=== PATIENT | female | born 1955 | race Caucasian/White ===

== ENCOUNTER 2021-10-30 08:03 | Day surgery (SDC) | payer BC ==
[2021-10-29 11:20] VITALS: BMI 18.8
[2021-10-30] MEDS: LACTATED RINGERS 1,000 ML IV SCH ×2 (08:54→09:21)
[2021-10-30 08:59] VITALS: RESP 16; TEMP 80
[2021-10-30] MEDS ORDERED: LIDOCAINE 2% INJ 20 MG/ML (2 ML VIAL) ONE (09:22)
[2021-10-30] MEDS ORDERED: PROPOFOL 10 MG/ML 20 ML VIAL IV ONE (09:22)
--- NOTE | 2021-10-30 09:40 | P.PCN ---
Date of Procedure: 10/30/21 Procedure(s) Performed: BRIEF HISTORY: Patient is a 65-year-old pleasant white female scheduled for an elective colonoscopy as a part of evaluation of change in bowel habits, intermittent rectal bleeding with mucus in the stools for the last 1 month duration. PROCEDURE PERFORMED: Colonoscopywith biopsy and snare polypectomy PREOPERATIVE DIAGNOSIS: Intermittent rectal bleeding, change in bowel habits]. IV sedation per Anesthesia. PROCEDURE: After informed consent was obtained, the patient, was brought into the endoscopy unit. IV sedation was administered by Anesthesia under continuous monitoring. Digital rectal examination was normal. Initially the Olympus CF-160 flexible video colonoscope was then inserted in the rectum, gradually advanced into the cecum without any difficulty. Careful examination was performed as the scope was gradually being withdrawn. Ileocecal valve and the appendiceal orifice were visualized and appeared normal. Prep was fair. Mucosa of the cecum, ascending colon, transverse colon, descending colon, sigmoid colon, and rectum appeared normal.in the distal rectum there was a 7 mm polyp removed by snare polypectomy. Random biopsies were done from the ascending and descending colon to rule out microscopic/collagenous colitis.Retroflexion was performed in the rectum and no lesions were seen. The patient tolerated the procedure well. IMPRESSION: 7-8 mm proximal rectal polyp status post polypectomy Rest of the colon appeared normal RECOMMENDATIONS: Findings of this examination were discussed with the patient as well as a family. She was advised to follow with the biopsy results..If the biopsy report adenoma she can have a repeat colonoscopy in 5 years.
[2021-10-30 09:46] VITALS: BP 134/75; PULSE 68
== END 2021-10-30 10:42 | disposition home or self-care (01) ==
LOC: ORWHC2ENDO 08:03
PROVIDERS: ATTEND Internal Medicine Gastroenterology
DX: D12.8 Benign neoplasm of rectum (principal); I10 Essential (primary) hypertension; J44.9 Chronic obstructive pulmonary disease, unspecified; E07.9 Disorder of thyroid, unspecified; Z88.2 Allergy status to sulfonamides; Z79.51 Long term (current) use of inhaled steroids; Z79.890 Hormone replacement therapy; Z79.899 Other long term (current) drug therapy
CPT/HCPCS: 88305; 45380; 45385; J2704; J2001

== ENCOUNTER 2024-07-19 13:11 | Emergency (ER) | payer BC ==
--- NOTE | 2024-07-19 14:35 | ED ---
SOB HPI - General Chief Complaint: Shortness of Breath Stated Complaint: SOB Time Seen by Provider: 07/19/24 14:35 Source: patient, family, RN notes reviewed Limitations: no limitations - History of Present Illness Initial Comments: 68-year-old female with a past medical history significant of COPD, hypertension and thyroid disorder presenting to the ER for evaluation of difficulty in breathing. Patient states since Thursday she has felt unwell with a throbbing headache, cough, congestion and runny nose. Patient reports she feels like her head is going to "explode". Patient has tried prescribed breathing treatments without relief of symptoms. Patient admits granddaughter has also been ill with a "head cold". Patient admits to mild shortness of breath. She denies any or thopnea, exertional dyspnea or peripheral edema. Denies home O2 use. Denies any chest pain, fevers, chills, abdominal pain. She does admit to recent diarrhea. No urinary complaints. - Related Data Home Medications Medication Instructions Recorded Confirmed Benazepril HCl 10 mg PO DAILY 10/29/21 07/19/24 Levothyroxine Sodium [Synthroid] 75 mcg PO DAILY 10/29/21 07/19/24 Tiotropium [place] [Spiriva] 1 puff INHALATION RT-DAILY 10/29/21 07/19/24 dilTIAZem HCL [dilTIAZem HCL 24Hr 120 mg PO DAILY 10/29/21 07/19/24 ER (Xr)] ALPRAZolam [Xanax] 0.25 mg PO BID PRN 07/19/24 07/19/24 Albuterol Sulfate [Albuterol 2 puff INHALATION RT-Q6H PRN 07/19/24 07/19/24 Sulfate Hfa] Atorvastatin [Lipitor] 20 mg PO DAILY 07/19/24 07/19/24 Citalopram Hydrobromide 20 mg PO DAILY 07/19/24 07/19/24 [Citalopram HBr] Fluticasone/Umeclidin/Vilanter 1 puff INHALATION RT-DAILY 07/19/24 07/19/24 [Trelegy Ellipta 100-62.5-25] Ipratropium-Albuterol Nebulize 3 ml INHALATION RT-TID PRN 07/19/24 07/19/24 [Duoneb 0.5 mg-3 mg/3 ml Soln] Omeprazole [PriLOSEC] 20 mg PO DAILY 07/19/24 07/19/24 Allergies Allergy/AdvReac Type Severity Reaction Status Date / Time Sulfa (Sulfonamide Allergy Anaphylaxis Verified 07/19/24 13:16 Antibiotics) Review of Systems ROS Statement: Those systems with pertinent positive or pertinent negative responses have been documented in the HPI. ROS Other: All systems not noted in ROS Statement are negative. Past Medical History Past Medical History: COPD, Hypertension, Thyroid Disorder Additional Past Medical History / Comment(s): LOW SODIUM History of Any Multi-Drug Resistant Organisms: None Reported Past Surgical History: Appendectomy, Back Surgery, Cholecystectomy, Orthopedic Surgery Additional Past Surgical History / Comment(s): RIGHT SHOULDER SURGERY Past Anesthesia/Blood Transfusion Reactions: No Reported Reaction Past Psychological History: Anxiety Smoking Status: Former smoker Past Alcohol Use History: Occasional Past Drug Use History: None Reported General Exam Limitations: no limitations General appearance: alert, in no apparent distress Head exam: Present: atraumatic, normocephalic, normal inspection Eye exam: Present: normal appearance, PERRL, EOMI. Absent: scleral icterus, conjunctival injection, periorbital swelling Pupils: Present: normal accommodation ENT exam: Present: normal exam, normal oropharynx, mucous membranes moist Neck exam: Present: normal inspection. Absent: tenderness, meningismus, lymphad enopathy Respiratory exam: Present: normal lung sounds bilaterally. Absent: respiratory distress, wheezes, rales, rhonchi, stridor Cardiovascular Exam: Present: regular rate, normal rhythm, normal heart sounds. Absent: systolic murmur, diastolic murmur, rubs, gallop, clicks GI/Abdominal exam: Present: soft, normal bowel sounds. Absent: distended, tenderness, guarding, rebound, rigid Extremities exam: Present: normal inspection, full ROM, normal capillary refill. Absent: tenderness, pedal edema, joint swelling, calf tenderness Neurological exam: Present: alert, oriented X3, CN II-XII intact Skin exam: Present: warm, dry, intact, normal color. Absent: rash Course Vital Signs 07/19/24 07/19/24 07/19/24 13:14 15:07 15:15 Temperature 97.9 F Pulse Rate 115 H 100 98 Respiratory 18 20 18 Rate Blood Pressure 156/105 150/93 O2 Sat by Pulse 97 96 Oximetry 04/29/25 04/29/25 04/29/25 15:25 17:18 18:57 Temperature 99.2 F 98.2 F Pulse Rate 95 94 74 Respiratory 18 18 18 Rate Blood Pressure 146/75 152/77 O2 Sat by Pulse 95 99 Oximetry - Reevaluation(s) Reevaluation #1: 07/19/24 17:24 Patient reevaluated. No signs of acute distress.Patient continued complaining of headache for which headache cocktail was ordered. CT brain also ordered. 07/19/24 18:45 Patient reevaluated. No signs of acute distress. Patient updated on CT results. Patient reporting improvement of headache. Patient agreeable for discharge and will follow-up outpatient with PCP. Medical Decision Making - Medical Decision Making Was pt. sent in by a medical professional or institution (, PA, PER DIEM PHYSICAL THERAPIST ASSISTANT, urgent care, hospital, or correction...) When possible be specific @ -No Did you speak to anyone other than the patient for history (EMS, parent, family, police, friend...)? What history was obtained from this source @ -No Did you review nursing and triage notes (agree or disagree)? Why? @ -I reviewed and agree with nursing and triage notes Were old charts reviewed (outside hosp., previous admission, EMS record, old EKG, old radiological studies, urgent care reports/EKG's, correction records)? Report findings @ -No old charts were reviewed Differential Diagnosis (chest pain, altered mental status, abdominal pain women, abdominal pain men, vaginal bleeding, weakness, fever, dyspnea, syncope, headache, dizziness, GI bleed, back pain, seizure, CVA, palpatations, mental health, musculoskeletal)? @ -Differential Weakness:Hypoglycemia, shock, sepsis, hyponatremia, anemia, infection, ND, ETOH, adverse medicine reaction, overdose, stroke, this is not meant to be an all-inclusive list. EKG interpreted by me (3pts min.). @ -As above X-rays interpreted by me (1pt min.). @ -CXR interpreted by me negative for focal consolidations, pneumothorax or pleural effusions. COPD. CT interpreted by me (1pt min.). @ -CT brain negative for acute intracranial process. Nonspecific white matter changes likely secondary to chronic small vessel ischemic disease U/S interpreted by me (1pt. min.). @ -None done What testing was considered but not performed or refused? (CT, X-rays, U/S, labs)? Why? @ -None What meds were considered but not given or refused? Why? @ -None Did you discuss the management of the patient with other professionals (professionals i.e. , PA, PER DIEM PHYSICAL THERAPIST ASSISTANT, lab, RT, psych nurse, social media analyst, superintendent, teacher, chemistry technical officer, senior case manager)? Give summary @ -No Was smoking cessation discussed for >3mins.? @ -No Was critical care preformed (if so, how long)? @ -No Were there social determinants of health that impacted care today? How? (Homelessness, low income, unemployed, alcoholism, drug addiction, transportation, low edu. Level, literacy, decrease access to med. care, fpc, rehab)? @ -No Was there de-escalation of care discussed even if they declined (Discuss DNR or withdrawal of care, Hospice)? DNR status @ -No What co-morbidities impacted this encounter? (DM, HTN, Smoking, COPD, CAD, Cancer, CVA, ARF, Chemo, Hep., AIDS, mental health diagnosis, sleep apnea, morbid obesity)? @ -None Was patient admitted / discharged? Hospital course, mention meds given and route, prescriptions, significant lab abnormalities, going to OR and other pertinent info. @ -Discharge. 68-year-old female presented the ER for evaluation for cough and shortness of breath. Upon arrival, patient tachycardic at 115 and hypertensive 156/105. These did improve in the ER. Patient had no signs of acute distress. Workup in the ER remarkable WBC of 4.44, lactic 1.5. D-dimer negative at 0.36. Troponin undetectable, <0.012. Viral swabs negative. Chest x-ray without focal consolidations, pneumothorax below effusions. Patient received p.o. Tylenol and IV fluids in the ER. CT completed as patient reports continued headache. CT brain negative for acute intracranial process. Patient did receive headache cocktail with improvement of headache upon reevaluation. Patient also received DuoNeb breathing treatment in the ER with improvement of symptoms. Symptoms believed to be viral in nature as patient's family member also has recent similar symptoms. Patient will be discharged stable condition with follow-up to PCP. Return parameters discussed. Patient verbally expressed understanding and agreement with care plan. Case discussed with ED attending, Dr. Diallo Undiagnosed new problem with uncertain prognosis? @ -No Drug Therapy requiring intensive monitoring for toxicity (Heparin, Nitro, Insulin, Cardizem)? @ -No Were any procedures done? @ -No Diagnosis/symptom? @ -Headahce/viral illness Acute, or Chronic, or Acute on Chronic? @ -Acute Uncomplicated (without systemic symptoms) or Complicated (systemic symptoms)? @ -Uncomplicated Side effects of treatment? @ -No Exacerbation, Progression, or Severe Exacerbation? @ -No Poses a threat to life or bodily function? How? (Chest pain, USA, ND, pneumonia, PE, COPD, DKA, ARF, appy, cholecystitis, CVA, Diverticulitis, Homicidal, Suicidal, threat to staff... and all critical care pts) @ -Unlikely - Lab Data Result diagrams: 07/19/24 14:56 07/19/24 14:56 Lab Results 07/19/24 07/19/24 07/19/24 Range/Units 14:56 14:56 14:56 WBC 4.44 L (4.50-10.00) 10*3/uL RBC 4.66 (4.10-5.20) 10*6/uL Hgb 15.1 H (12.0-15.0) g/dL Hct 43.1 (37.2-46.3) % MCV 92.5 (80.0-97.0) fL MCH 32.4 H (27.0-32.0) pg MCHC 35.0 (32.0-37.0) g/dL Plt Count 198 (140-440) 10*3/uL MPV 8.0 L (9.5-12.2) fL Immature Gran % (Auto) 0.5 % Neutrophils % 80.2 % Lymphocytes % 11.5 % Monocytes % 7.4 % Eosinophils % 0.2 % Basophils % 0.2 % Immature Gran # 0.02 (0.00-0.04) 10*3/uL Neutrophils # 3.56 (1.80-7.70) 10*3/uL Lymphocytes # 0.51 L (0.90-5.00) 10*3/uL Monocytes # 0.33 (0.20-1.00) 10*3/uL Eosinophils # 0.01 L (0.04-0.35) 10*3/uL Basophils # 0.01 (0.00-0.10) 10*3/uL PT (10.0-12.5) sec INR (<1.2) APTT (22.0-30.0) sec D-Dimer (<0.60) mg/L FEU Sodium 127 L (137-145) mmol/L Potassium 4.7 (3.5-5.1) mmol/L Chloride 90 L (98-107) mmol/L Carbon Dioxide 26 (22-30) mmol/L Anion Gap 11 mmol/L BUN 17 (7-17) mg/dL Creatinine 0.54 (0.52-1.04) mg/dL Est GFR (CKD-EPI)AfAm >90 (>60 ml/min/1.73 sqM) Est GFR (CKD-EPI)NonAf >90 (>60 ml/min/1.73 sqM) Glucose 112 H (74-99) mg/dL Plasma Lactic Acid Derek 1.5 (0.7-2.0) mmol/L Calcium 9.8 (8.4-10.2) mg/dL Total Bilirubin 0.9 (0.2-1.3) mg/dL AST 35 (14-36) U/L ALT 23 (4-34) U/L Alkaline Phosphatase 89 (38-126) U/L Troponin I (0.000-0.034) ng/mL Total Protein 8.3 H (6.3-8.2) g/dL Albumin 4.8 (3.5-5.0) g/dL Influenza Type A (PCR) (Not Detectd) Influenza Type B (PCR) (Not Detectd) RSV (PCR) (Not Detectd) SARS-CoV-2 (PCR) (Not Detectd) 07/19/24 07/19/24 07/19/24 Range/Units 15:10 16:18 16:18 WBC (4.50-10.00) 10*3/uL RBC (4.10-5.20) 10*6/uL Hgb (12.0-15.0) g/dL Hct (37.2-46.3) % MCV (80.0-97.0) fL MCH (27.0-32.0) pg MCHC (32.0-37.0) g/dL Plt Count (140-440) 10*3/uL MPV (9.5-12.2) fL Immature Gran % (Auto) % Neutrophils % % Lymphocytes % % Monocytes % % Eosinophils % % Basophils % % Immature Gran # (0.00-0.04) 10*3/uL Neutrophils # (1.80-7.70) 10*3/uL Lymphocytes # (0.90-5.00) 10*3/uL Monocytes # (0.20-1.00) 10*3/uL Eosinophils # (0.04-0.35) 10*3/uL Basophils # (0.00-0.10) 10*3/uL PT 10.3 (10.0-12.5) sec INR 0.9 (<1.2) APTT 23.4 (22.0-30.0) sec D-Dimer 0.36 (<0.60) mg/L FEU Sodium (137-145) mmol/L Potassium (3.5-5.1) mmol/L Chloride (98-107) mmol/L Carbon Dioxide (22-30) mmol/L Anion Gap mmol/L BUN (7-17) mg/dL Creatinine (0.52-1.04) mg/dL Est GFR (CKD-EPI)AfAm (>60 ml/min/1.73 sqM) Est GFR (CKD-EPI)NonAf (>60 ml/min/1.73 sqM) Glucose (74-99) mg/dL Plasma Lactic Acid Derek (0.7-2.0) mmol/L Calcium (8.4-10.2) mg/dL Total Bilirubin (0.2-1.3) mg/dL AST (14-36) U/L ALT (4-34) U/L Alkaline Phosphatase (38-126) U/L Troponin I <0.012 (0.000-0.034) ng/mL Total Protein (6.3-8.2) g/dL Albumin (3.5-5.0) g/dL Influenza Type A (PCR) Not Detected (Not Detectd) Influenza Type B (PCR) Not Detected (Not Detectd) RSV (PCR) Not Detected (Not Detectd) SARS-CoV-2 (PCR) Not Detected (Not Detectd) - EKG Data -: EKG Interpreted by Me EKG Comments: EKG taken at 13: 21 showing sinus tachycardia. No ST segment elevations or depressions. No T wave inversions. Ventricular rate 116, parable 152, QRS duration 79, QT/QTc 341/410. - Radiology Data Radiology results: report reviewed, image reviewed Disposition Clinical Impression: Viral illness, Headache Disposition: HOME SELF-CARE Condition: Stable Additional Instructions: You may take [id number] ibuprofen and Tylenol for headache and symptom control. Follow-up closely with PCP in the next 1 to 2 days. Return to the ER for any new or worsening concerns. Is patient prescribed a controlled substance at d/c from ED?: No Referrals: Meir Lundberg MD [Primary Care Provider] - 1-2 days Time of Disposition: 18:51
[2024-07-19 15:02] LABS: Basophils # (A) 0.01 10*3/uL (0.00-0.10); Basophils % (A) 0.2 %; Eosinophils # (A) 0.01 10*3/uL (0.04-0.35); Eosinophils % (A) 0.2 %; HCT 43.1 % (37.2-46.3); HGB 15.1 g/dL (12.0-15.0); Lymphocytes # (A) 0.51 10*3/uL (0.90-5.00); Lymphocytes % (A) 11.5 %; MCH 32.4 pg (27.0-32.0); MCV 92.5 fL (80.0-97.0); Monocytes # (A) 0.33 10*3/uL (0.20-1.00); Monocytes % (A) 7.4 %; Neutrophils # (A) 3.56 10*3/uL (1.80-7.70); Neutrophils % (A) 80.2 %; Platelet Count 198 10*3/uL (140-440); RBC 4.66 10*6/uL (4.10-5.20); RDW 13.2 % (11.5-14.5); WBC 4.44 10*3/uL (4.50-10.00)
[2024-07-19 15:14] LABS: ALT 23 U/L (4-34); AST 35 U/L (14-36); African American GFR (CKD) >90 (>60 ml/min/1.73 sqM); Albumin 4.8 g/dL (3.5-5.0); Alkaline Phosphatase 89 U/L (38-126); Anion Gap 11 mmol/L; Blood Urea Nitrogen 17 mg/dL (7-17); Calcium 9.8 mg/dL (8.4-10.2); Carbon Dioxide 26 mmol/L (22-30); Chloride 90 mmol/L (98-107); Glucose 112 mg/dL (74-99); Non-African American GFR(CKD) >90 (>60 ml/min/1.73 sqM); Potassium 4.7 mmol/L (3.5-5.1); Sodium 127 mmol/L (137-145); Total Bilirubin 0.9 mg/dL (0.2-1.3); Total Protein 8.3 g/dL (6.3-8.2)
[2024-07-19] MEDS: IPRATROPIUM-ALBUTEROL 3 ML NEB INHALATION STA (15:15)
[2024-07-19 15:17] VITALS: RESP 18
[2024-07-19] MEDS: ACETAMINOPHEN TAB 325 MG TAB PO STA (15:30)
[2024-07-19] MEDS: SODIUM CHLORIDE 0.9% 500 ML 500 ML IV ONE (15:31)
--- NOTE | 2024-07-19 15:45 | XR ---
EXAMINATION TYPE: XR chest 2V DATE OF EXAM: 07/19/2024 3:40 PM COMPARISON: Chest radiographs from CLINICAL INDICATION: Female, 68 years old with history of cough JAZ, , TECHNIQUE: PA and lateral views FINDINGS: Heart normal size. Aorta and pulmonary vasculature within normal limits. Peribronchial cuffing and hy perinflation. No consolidation or pleural effusion seen. Pectus excavatum noted. Partially visualized antegrade intramedullary nail fixation right humerus. IMPRESSION: Pectus excavatum and COPD. Peribronchial cuffing could reflect a prominent component of chronic bronc hitis versus superimposed acute bronchitis. [facility], Workstation: [facility], 07/19/2024 3:43 PM
[2024-07-19 15:51] LABS: Influenza A Not Detected (Not Detectd); Influenza B Not Detected (Not Detectd); RSV Not Detected (Not Detectd)
[2024-07-19 16:43] LABS: INR 0.9 (<1.2); Partial Thromboplastin Time 23.4 sec (22.0-30.0); Prothrombin Time 10.3 sec (10.0-12.5)
[2024-07-19] MEDS: diphenhydrAMINE 50 MG/ML 1 ML VIAL IVP STA (17:19)
[2024-07-19] MEDS: METOCLOPRAMIDE 5 MG/ML 2 ML VIAL IVP STA (17:19)
[2024-07-19] MEDS: DEXAMETHASONE SOD PHOSPHATE 4 MG/ML 1 ML VIAL IVP STA (17:20)
--- NOTE | 2024-07-19 18:39 | CT ---
EXAMINATION TYPE: CT brain wo con CT DLP: 1098.4 mGycm, Automated exposure control for dose reduction was used. DATE OF EXAM: 07/19/2024 6:32 PM COMPARISON: None. CLINICAL INDICATION:Female, 68 years old with history of headache, HEADACHE TECHNIQUE: Brain: Multiple axial CT images of the brain were obtained without IV contrast. . Coronal and sagitta l reformats reviewed. FINDINGS: Brain: Extra-axial spaces: No abnormal extra-axial fluid collections. Ventricular system: Within normal limits Cerebral parenchyma: No acute intraparenchymal hemorrhage or mass effect. The rodriguez-white junction is well differentiated. Scattered hypoattenuating areas are seen within the periventricular subcortical white matter. Cerebellum: Unremarkable. Mass effect: No evidence of midline shift. Intracranial vasculature: Atherosclerotic calcifications of the intracranial vessels. Soft tissues: Normal. Calvarium/osseous structures: No depressed skull fracture. Paranasal sinuses and mastoid air cells: The mastoid air cells are clear. Mild mucosal thickening of the ethmoid sinuses. Hypoplastic appearance of the bilateral sphenoid sinuses with moderate mucosal t hickening. Mild mucosal thickening of the inferior right frontal sinus. Visualized orbits: Bilateral aphakia IMPRESSION: 1. No acute intracranial process. 2. Nonspecific white matter changes, likely secondary to chronic small vessel ischemic disease. [facility], , 07/19/2024 6:37 PM
[2024-07-19 18:59] VITALS: BP 152/77; PULSE 74; TEMP 98.2
== END 2024-07-19 19:04 | disposition home or self-care (01) ==
LOC: EC 13:11
DX: R51.9 Headache, unspecified (principal); B34.9 Viral infection, unspecified; R00.0 Tachycardia, unspecified; Z87.891 Personal history of nicotine dependence; Z88.2 Allergy status to sulfonamides
CPT/HCPCS: 36415; 94640; 93005; 85379; 80053; 83605; 84484; 85025; 85610; 85730; 87636; 71046; 70450; 99285; 96374; 96375 ×2; 96361; J1200; J1100; J2765